=== PATIENT | female | born 1950 | race African-American/Black ===

== ENCOUNTER 2017-01-15 18:04 | Inpatient (IN) ==
[2017-01-16] MEDS: *HR* OxyCODONE Immed Rel 5 MG TABLET PO PRN ×4 (01:00→21:33)
[2017-01-16 06:00] LABS: INR 1.2; Prothrombin Time 12.5 Seconds (9.4-12.1)
[2017-01-16 06:03] LABS: Activated Partial Thrombo Time 31.5 Seconds (26.0-36.0)
[2017-01-16 06:21] LABS: BUN/Creatinine Ratio 22 (6-26); Blood Urea Nitrogen 18 mg/dL (7-20); Calcium 8.4 mg/dL (8.6-10.8); Carbon Dioxide 27 mEq/L (19-29); Chloride 102 mEq/L (98-109); Glucose 102 mg/dL (70-99); Osmolality,Calculated 288 (280-300); Sodium 138 mEq/L (136-145); eGFR For African Americans > 60 (> 60); eGFR For Non-African Americans > 60 (> 60)
[2017-01-16 07:09] LABS: Basophils % 0.4 %; Eosinophils # 0.3 K/mcL (0.0-0.6); Eosinophils % 2.9 %; Hematocrit 30.3 % (35.3-44.9); Hemoglobin 9.8 g/dL (11.5-15.4); Immature Granulocytes % 0.5 % (0-4); Lymphocytes # 2.3 K/mcL (0.6-4.6); Lymphocytes % 22.6 %; Mean Corpuscular HGB Conc 32.3 g/dL (31.6-35.5); Mean Corpuscular Hemoglobin 29.8 pg (28.0-33.3); Mean Corpuscular Volume 92.1 fL (83.0-100.0); Mean Platelet Volume 10.4 fL (9.4-12.4); Monocytes # 0.8 K/mcL (0.0-1.3); Monocytes % 7.6 %; Neutrophils # 6.6 K/mcL (1.6-8.9); Platelet Count 177 K/mcL (140-400); Red Blood Count 3.29 M/mcL (3.82-4.97); Red Cell Distribution Width 14.3 % (11.5-14.5)
[2017-01-16] MEDS: amLODIPine 5 MG TABLET PO SCH (07:47)
[2017-01-16] MEDS: Multivit/Ca/Min/Fe/FA 1 TAB TABLET PO SCH (07:47)
[2017-01-16] MEDS: Aspirin Enteric Coated 325 MG Tablet PO SCH (07:51)
--- NOTE | 2017-01-16 15:39 | Internal Med History&Physical ---
Date of Encounter: 01/16/17 Time of Encounter: 15:15 Assessment and Plan (1) Arthritis of knee, right Current visit: No Status: Acute Status post right TKR 01/13/2017. She will have physical therapy and occupational therapy interventions (2) Anemia Current visit: Yes Status: Acute Suspect due to blood loss since her preop hemoglobin was normal. We will monitor CBC. Qualifiers: Anemia type: unspecified type Qualified Code(s): D64.9 - Anemia, unspecified (3) HTN (hypertension) Current visit: No Status: Chronic Continue Norvasc, Lopressor, and Dyazide. Qualifiers: Hypertension type: essential hypertension Qualified Code(s): I10 - Essential (primary) hypertension Internal Medicine - H&P: HPI Chief complaint: Right knee replacement Admitted From: Hospital to Hospital Transfer Plans for Post Hospital Care: Home History of present illness: Ms. Salinas is a 66 year old female who had left total knee replacement [address] Jaeger at [facility]. Her postop course was unremarkable and she was admitted to [facility] swing bed for rehabilitation therapy prior to returning home to independent living. She states she had previous left shoulder pain and received an injection. She has occasional neck pain. She denies other bone joint or muscle disorders. Past Med Surg Social Fam HX - Past Medical History Medical history: arthritis, hypertension Psychiatric history: no psych history - Social History Smoking Status: Never smoker Smokeless Tobacco Status: No Alcohol use: rarely Drug use: none Internal Medicine - H&P: Meds Amlodipine Besylate 10 mg PO DAILY 10/30/16 [History] Multivitamin [Multi-Day Vitamins] 1 tab PO DAILY 10/30/16 [History] Naproxen Sodium [Aleve] 220 mg PO BID PRN 10/30/16 [History] Potassium Chloride [K-Tab ER] 10 meq PO DAILY 10/30/16 [History] Triamterene/Hydrochlorothiazid [Dyazide 37.5-25 Capsule] 1 tab PO DAILY [History] Aspirin Enteric Coated [Aspirin EC] 325 mg PO DAILY #21 tablet. 01/12/17 [Rx] OxyCODONE Immed Rel [Roxicodone 5 MG] 5 - 10 mg PO Q6HR PRN #40 tablet 01/12/17 [Rx] Metoprolol [Lopressor] 25 mg PO BID 01/14/17 [History] Allergies No Known Drug Allergies Allergy (Verified 10/23/16 09:41) See Comments All Systems PM: A 10-system review of systems was performed and is negative for pertinent findings except as documented above in the HPI. Review of systems: Gen.: She states her weight has been stable the past few months Cardiovascular: She has history of hypertension. She has a heart murmur due to a "leaky valve". She follows with Dr. Samano at [facility]. She denies DVT or pulmonary embolus. Respiratory: She is a lifelong nonsmoker and has no known chronic lung disease. She has been diagnosed with KEVIN and is in the process of getting BiPAP at her home GI: She denies disorders of her liver gallbladder or exocrine pancreas : She denies hematuria dysuria or kidney stones Neurologic: She denies large distribution strokes or seizures Endocrine: She denies diabetes or thyroid disease or hyperlipidemia Hematology/oncology: She denies blood disorders cancers or anemia Psychiatric: She denies anxiety depression or other mental health issues Musk skeletal: As per history of present illness - Constitutional Vitals: Temp Pulse Resp BP Pulse Ox 98.7 F 90 18 130/78 98 01/16/17 07:52 01/16/17 14:28 01/16/17 14:28 01/16/17 14:28 01/16/17 14:28 Exam: Gen.: She is a well-developed well-nourished female who appears in no severe distress at present time HEENT: Head is atraumatic and normocephalic. Eyes: EOMI. There is no scleral icterus. Mouth: Mucosa is moist. Neck: Supple and nontender. There is no thyromegaly or adenopathy noted. Heart: Regular with a 2 to 3/6 systolic murmur heard at the left sternal border. S1 and S2 are preserved. Lungs: No wheezes or crackles are heard Abdomen: Soft and nontender. No masses or guarding are noted. Extremities: She has a dressing over the right anterior knee area. There is no significant edema of her lower legs. Dorsalis pedis and posterior tibial pulses are trace palpable bilaterally. Neurologic: Mental status: She is talkative and a good historian. Cranial nerves: Smile is symmetric. Forehead wrinkles bilaterally. Tongue protrudes midline. EOMI. Motor: There is no pronator drift. Cerebellar: Finger to nose is intact bilaterally. Skin: Warm and dry Internal Med - H&P Results - Labs CBC & Chem 7: 01/16/17 04:42 01/16/17 04:42 Labs: Short CBC 01/16/17 Range/Units 04:42 WBC 10.0 (4.3-11.1) K/mcL Hgb 9.8 L (11.5-15.4) g/dL Hct 30.3 L (35.3-44.9) % Plt Count 177 (140-400) K/mcL Neutrophils # 6.6 (1.6-8.9) K/mcL BMP 01/16/17 04:42 Sodium 138 Potassium 4.0 Chloride 102 Carbon Dioxide 27 BUN 18 Creatinine 0.83 Glucose 102 H Calcium 8.4 L
[2017-01-17] MEDS: *HR* OxyCODONE Immed Rel 5 MG TABLET PO PRN ×3 (05:28→17:30)
[2017-01-17] MEDS: amLODIPine 5 MG TABLET PO SCH (08:24)
[2017-01-17] MEDS: Multivit/Ca/Min/Fe/FA 1 TAB TABLET PO SCH (08:24)
[2017-01-17] MEDS: Aspirin Enteric Coated 325 MG Tablet PO SCH (11:41)
--- NOTE | 2017-01-17 14:15 | Internal Med Progress Note ---
Date of Encounter: 01/17/17 Time of Encounter: 14:05 - Assessment and plan (1) Arthritis of knee, right Current Visit: No Status: Acute Assessment and plan: January 17. Status post right TKR 01/13/2017. Continue PT and OT (2) Anemia Current Visit: Yes Status: Acute Assessment and plan: January 17. We will monitor CBC Qualifiers: Anemia type: unspecified type Qualified Code(s): D64.9 - Anemia, unspecified (3) HTN (hypertension) Current Visit: No Status: Chronic Assessment and plan: January 17. Continue Norvasc, Lopressor, and Dyazide Qualifiers: Hypertension type: essential hypertension Qualified Code(s): I10 - Essential (primary) hypertension - Subjective Interval history: January 17. She has no new complaints - Constitutional Vitals: Temp Pulse Resp BP Pulse Ox 98.2 F 72 18 118/58 96 01/17/17 09:15 01/17/17 11:46 01/17/17 11:46 01/17/17 11:46 01/17/17 11:46 Exam: She is resting comfortably in bed. She was ambulating in the [facility]za earlier today and appeared in no pain at that time. Her affect was bright and cheerful. I reviewed her medications and lab results. Internal Medicine: Result - Labs CBC & Chem 7: 01/16/17 04:42 01/16/17 04:42 - ABG Interpretation ABG results: PT/INR, D-dimer PT 12.5 Seconds (9.4-12.1) H 01/16/17 04:42 Consult Discharge Plan - Plan Referrals: Trenton Lopez DO [Primary Care Provider] - 1 week
[2017-01-18] MEDS: *HR* OxyCODONE Immed Rel 5 MG TABLET PO PRN ×4 (02:05→20:23)
[2017-01-18] MEDS: amLODIPine 5 MG TABLET PO SCH (08:34)
[2017-01-18] MEDS: Multivit/Ca/Min/Fe/FA 1 TAB TABLET PO SCH (08:34)
[2017-01-18] MEDS: Aspirin Enteric Coated 325 MG Tablet PO SCH (11:04)
[2017-01-19] MEDS: *HR* OxyCODONE Immed Rel 5 MG TABLET PO PRN ×4 (03:19→22:05)
[2017-01-19] MEDS: Multivit/Ca/Min/Fe/FA 1 TAB TABLET PO SCH (08:59)
[2017-01-19] MEDS: Aspirin Enteric Coated 325 MG Tablet PO SCH (09:00)
[2017-01-19] MEDS: amLODIPine 5 MG TABLET PO SCH (09:00)
--- NOTE | 2017-01-19 12:57 | Internal Med Progress Note ---
Date of Encounter: 01/19/17 Time of Encounter: 12:45 - Assessment and plan (1) Arthritis of knee, right Current Visit: No Status: Acute Assessment and plan: January 17. Status post right TKR 01/13/2017. Continue PT and OT (2) Anemia Current Visit: Yes Status: Acute Assessment and plan: January 17. We will monitor CBC Qualifiers: Anemia type: unspecified type Qualified Code(s): D64.9 - Anemia, unspecified (3) HTN (hypertension) Current Visit: No Status: Chronic Assessment and plan: January 17. Continue Norvasc, Lopressor, and Dyazide January 19. Continue present regimen. Blood pressure is well controlled. Qualifiers: Hypertension type: essential hypertension Qualified Code(s): I10 - Essential (primary) hypertension - Subjective Interval history: January 17. She has no new complaints January 19. She has no new complaints except she has not had a bowel movement since admission. - Constitutional Vitals: Temp Pulse Resp BP Pulse Ox 98.6 F 83 16 120/65 97 01/19/17 09:25 01/19/17 09:25 01/19/17 09:25 01/19/17 09:25 01/19/17 09:25 Exam: She is resting comfortably in bed. Her affect is bright and cheerful. I reviewed her medications and lab results. Internal Medicine: Result - Labs CBC & Chem 7: 01/16/17 04:42 01/16/17 04:42 - ABG Interpretation ABG results: PT/INR, D-dimer PT 12.5 Seconds (9.4-12.1) H 01/16/17 04:42 Consult Discharge Plan - Plan Referrals: Trenton Lopez DO [Primary Care Provider] - 1 week
[2017-01-19] MEDS ORDERED: MOM Conc 10 ML UD.LIQ PO SCH (13:00)
[2017-01-20] MEDS: *HR* OxyCODONE Immed Rel 5 MG TABLET PO PRN ×3 (04:39→16:20)
[2017-01-20 06:28] LABS: Basophils % 0.3 %; Eosinophils # 0.3 K/mcL (0.0-0.6); Eosinophils % 4.3 %; Hematocrit 31.3 % (35.3-44.9); Hemoglobin 10.2 g/dL (11.5-15.4); Immature Granulocytes % 0.4 % (0-4); Lymphocytes # 1.6 K/mcL (0.6-4.6); Lymphocytes % 20.5 %; Mean Corpuscular HGB Conc 32.6 g/dL (31.6-35.5); Mean Corpuscular Hemoglobin 29.5 pg (28.0-33.3); Mean Corpuscular Volume 90.5 fL (83.0-100.0); Mean Platelet Volume 9.3 fL (9.4-12.4); Monocytes # 0.6 K/mcL (0.0-1.3); Monocytes % 7.6 %; Neutrophils # 5.2 K/mcL (1.6-8.9); Platelet Count 212 K/mcL (140-400); Red Blood Count 3.46 M/mcL (3.82-4.97); Red Cell Distribution Width 14.6 % (11.5-14.5); Segmented Neutrophils % 66.9 %
[2017-01-20 06:50] LABS: BUN/Creatinine Ratio 20 (6-26); Blood Urea Nitrogen 18 mg/dL (7-20); Calcium 8.9 mg/dL (8.6-10.8); Carbon Dioxide 28 mEq/L (19-29); Chloride 102 mEq/L (98-109); Glucose 96 mg/dL (70-99); Osmolality,Calculated 292 (280-300); Potassium 4.2 mEq/L (3.5-4.5); Sodium 140 mEq/L (136-145); eGFR For African Americans > 60 (> 60); eGFR For Non-African Americans > 60 (> 60)
[2017-01-20] MEDS: Aspirin Enteric Coated 325 MG Tablet PO SCH (09:59)
[2017-01-20] MEDS: Multivit/Ca/Min/Fe/FA 1 TAB TABLET PO SCH (09:59)
[2017-01-20] MEDS: amLODIPine 5 MG TABLET PO SCH (09:59)
[2017-01-20] MEDS: MOM Conc 10 ML UD.LIQ PO SCH (20:43)
[2017-01-21] MEDS: amLODIPine 5 MG TABLET PO SCH (10:06)
[2017-01-21] MEDS: MOM Conc 10 ML UD.LIQ PO SCH (10:06)
[2017-01-21] MEDS: Multivit/Ca/Min/Fe/FA 1 TAB TABLET PO SCH (10:07)
--- NOTE | 2017-01-21 17:36 | Internal Med Progress Note ---
Date of Encounter: 01/21/17 Time of Encounter: 17:25 - Assessment and plan (1) Arthritis of knee, right Current Visit: No Status: Acute Assessment and plan: January 17. Status post right TKR 01/13/2017. Continue PT and OT January 21. Continue PT/OT. Anticipate discharge home January 23. (2) Anemia Current Visit: Yes Status: Acute Assessment and plan: January 17. We will monitor CBC January 21. Hemoglobin improved to 10.2 yesterday. Will not workup or treat further. Qualifiers: Anemia type: unspecified type Qualified Code(s): D64.9 - Anemia, unspecified (3) HTN (hypertension) Current Visit: No Status: Chronic Assessment and plan: January 17. Continue Norvasc, Lopressor, and Dyazide January 19. Continue present regimen. Blood pressure is well controlled. Qualifiers: Hypertension type: essential hypertension Qualified Code(s): I10 - Essential (primary) hypertension (4) Constipation Current Visit: Yes Status: Acute Assessment and plan: January 21. Magnesium citrate will be given. Qualifiers: Constipation type: unspecified constipation type Qualified Code(s): K59.00 - Constipation, unspecified - Subjective Interval history: January 17. She has no new complaints January 19. She has no new complaints except she has not had a bowel movement since admission. January 21. She has no new complaints. She reports no bowel movement has occurred - Constitutional Vitals: Temp Pulse Resp BP Pulse Ox 97.9 F 79 16 136/67 95 01/21/17 06:51 01/21/17 10:02 01/21/17 10:02 01/21/17 10:02 01/21/17 10:02 Exam: She appears uncomfortable stating she feels constipated. Internal Medicine: Result - Labs CBC & Chem 7: 01/20/17 06:20 01/20/17 06:20 - ABG Interpretation ABG results: PT/INR, D-dimer PT 12.5 Seconds (9.4-12.1) H 01/16/17 04:42 Consult Discharge Plan - Plan Referrals: Trenton Lopez DO [Primary Care Provider] - 1 week
[2017-01-21] MEDS: Aspirin Enteric Coated 325 MG Tablet PO SCH (17:56)
[2017-01-22] MEDS: Multivit/Ca/Min/Fe/FA 1 TAB TABLET PO SCH (08:29)
[2017-01-22] MEDS: Aspirin Enteric Coated 325 MG Tablet PO SCH (08:29)
[2017-01-22] MEDS: amLODIPine 5 MG TABLET PO SCH (08:29)
[2017-01-22] MEDS: MOM Conc 10 ML UD.LIQ PO SCH (08:30)
[2017-01-22] MEDS ORDERED: Preparation H Ointment 30 GM TUBE RC PRN (09:47)
[2017-01-23 07:13] VITALS: BP 112/68
[2017-01-23] MEDS: MOM Conc 10 ML UD.LIQ PO SCH (09:07)
[2017-01-23] MEDS: Multivit/Ca/Min/Fe/FA 1 TAB TABLET PO SCH (09:07)
[2017-01-23] MEDS: amLODIPine 5 MG TABLET PO SCH (09:07)
[2017-01-23] MEDS: Aspirin Enteric Coated 325 MG Tablet PO SCH (09:09)
--- NOTE | 2017-01-23 10:02 | Discharge Summary ---
Date of Encounter: 01/23/17 Time of Encounter: 09:50 - Discharge Diagnosis (1) Arthritis of knee, right Priority: Primary Status: Acute (2) Anemia Priority: Secondary Status: Acute Qualifiers: Anemia type: unspecified type Qualified Code(s): D64.9 - Anemia, unspecified (3) HTN (hypertension) Priority: Secondary Status: Chronic Qualifiers: Hypertension type: essential hypertension Qualified Code(s): I10 - Essential (primary) hypertension (4) Constipation Priority: Secondary Status: Resolved Qualifiers: Constipation type: unspecified constipation type Qualified Code(s): K59.00 - Constipation, unspecified - Discharge Medications Home Medications: Amlodipine Besylate 10 mg PO DAILY 10/30/16 [History] Multivitamin [Multi-Day Vitamins] 1 tab PO DAILY 10/30/16 [History] Potassium Chloride [K-Tab ER] 10 meq PO DAILY 10/30/16 [History] Triamterene/Hydrochlorothiazid [Dyazide 37.5-25 Capsule] 1 tab PO DAILY [History] Aspirin Enteric Coated [Aspirin EC] 325 mg PO DAILY #21 tablet. 01/12/17 [Rx] OxyCODONE Immed Rel [Roxicodone 5 MG] 5 - 10 mg PO Q6HR PRN #40 tablet 01/12/17 [Rx] Metoprolol [Lopressor] 25 mg PO BID 01/14/17 [History] Allergies/Adverse Reactions: Allergies No Known Drug Allergies Allergy (Verified 10/23/16 09:41) See Comments Date of admission: 01/15/17 19:33 Primary care physician: Trenton Lopez Consults: 01/15/17 19:51 Consult to Occupational Therapy [CONS] Routine Comment: eval, develop, and implement plan of care Reason for Consult: eval, develop, and implement plan of care Consult to Physical Therapy [CONS] Routine Comment: eval, develop, and implement plan of care Reason for Consult: eval, develop, and implement plan of care Consult to Trade Analyst [CONS] Routine Reason for SW Consult: D/C planning - Patient Status Disposition: Home Health Service Functional capacity at discharge: uses cane/walker Overall status at discharge: patient is progressing back to baseline - Discharge Instructions Follow Up With: Trenton Lopez DO [Primary Care Provider] - 1 week - Diet and Activity Activity: as per physical therapy Diet: advance to your usual diet Hospital course: Ms. Salinas is a 66 year old female who had left total knee replacement [address] Jaeger at [facility]. Her postop course was unremarkable and she was admitted to [facility] swing bed for rehabilitation therapy prior to returning home to independent living. She states she had previous left shoulder pain and received an injection. She has occasional neck pain. She denies other bone joint or muscle disorders. Initial orders were written by the discharging physicians at [facility]. I saw her on January 16 and performed a swing bed history and physical. She had physical therapy and occupational therapy evaluations with ongoing interventions. She made satisfactory progress and had no complications during her swing bed stay. On January 23 she felt stable for discharge home. She will follow with her PCP within one week and with her orthopedic group as directed. - Time Spent with Patient Total time spent providing and/or coordinating discharge services: - Constitutional Vitals: Temp Pulse Resp BP Pulse Ox 98.0 F 80 16 112/68 93 01/23/17 07:08 01/23/17 07:43 01/23/17 07:43 01/23/17 07:43 01/23/17 07:43
--- NOTE | 2017-01-23 10:04 | Physician Discharge Referral ---
Home Health/Hosp Referral Info Transfer to: Home Health Attending Provider: Lex Provider in Charge Post Discharge: PCP (Trenton Lopez DO) - Diagnosis (1) Arthritis of knee, right Priority: Primary Status: Acute (2) Anemia Priority: Secondary Status: Acute (3) HTN (hypertension) Priority: Secondary Status: Chronic (4) Constipation Priority: Secondary Status: Resolved - Respiratory Orders Smoking Cessation: Smoking cessation has been advised. For more information, call the [place] Tobacco Quit Line at 2-005-OFVI-NOW. - Diet/Nutrition Diet/Nutrition Orders: Regular - Activity Activity Orders: Ambulate - Services Needed Following services are medically necessary services: Nursing, Home Health Aide, Physical Therapy, Occupational Therapy - Transfer Medications Home Medications: Amlodipine Besylate 10 mg PO DAILY 10/30/16 [History] Multivitamin [Multi-Day Vitamins] 1 tab PO DAILY 10/30/16 [History] Potassium Chloride [K-Tab ER] 10 meq PO DAILY 10/30/16 [History] Triamterene/Hydrochlorothiazid [Dyazide 37.5-25 Capsule] 1 tab PO DAILY [History] Aspirin Enteric Coated [Aspirin EC] 325 mg PO DAILY #21 tablet. 01/12/17 [Rx] OxyCODONE Immed Rel [Roxicodone 5 MG] 5 - 10 mg PO Q6HR PRN #40 tablet 01/12/17 [Rx] Metoprolol [Lopressor] 25 mg PO BID 01/14/17 [History] Allergies/Adverse Reactions: Allergies No Known Drug Allergies Allergy (Verified 10/23/16 09:41) See Comments Certification: Further, I certify that my clinical findings support that this patient is homebound (i.e. absences from home require considerable and taxing effort and are for medical reasons or mormon services or infrequently or short duration when for other reasons) because: Homebound Reason: Leaving home requires considerable and taxing effort due to condition (Status post left TKR 01/13/2017.) Attestation: My signature below is to certify that this patient is under my care and that I, or nurse practitioner, or a physician's seed analysis laboratory assistant working with me, has a face-to -face encounter with this patient.
== END 2017-01-23 13:30 | disposition home health service (06) | DRG 561 ==
LOC: INPPIK 19:33
PROVIDERS: ADMIT Internal Medicine; ATTEND Internal Medicine

== ENCOUNTER 2017-09-25 10:08 | Inpatient (IN) ==
[2017-09-25] MEDS ORDERED: *HR* OxyCODONE Immed Rel 5 MG TABLET PO PRN (14:25)
--- NOTE | 2017-09-25 15:51 | Internal Med History&Physical ---
Date of Encounter: 09/25/17 Time of Encounter: 15:30 Assessment and Plan (1) Status post total left knee replacement Current visit: No Status: Acute She will be given Lovenox for DVT prophylaxis. PT and OT interventions will be done and further workup as needed. (2) HTN (hypertension) Current visit: No Status: Chronic Continue Dyazide, Norvasc, and Lopressor. Qualifiers: Hypertension type: essential hypertension Qualified Code(s): I10 - Essential (primary) hypertension (3) Anemia Current visit: No Status: Acute Hemoglobin was normal preoperatively. We will monitor CBC periodically. Qualifiers: Anemia type: unspecified type Qualified Code(s): D64.9 - Anemia, unspecified Internal Medicine - H&P: HPI Chief complaint: DJD with left TKR Admitted From: Hospital to Hospital Transfer Plans for Post Hospital Care: Home History of present illness: Ms. Salinas is a 67 year old female who was admitted to [facility] swing bed today after having left total knee replacement 09/22/[address] Jaeger at [facility]. Her postoperative course was unremarkable and she was admitted for rehabilitation therapy prior to returning home to independent living. She had right total knee replacement December 2016. She denies other bone joint or muscle disorders. Past Med Surg Social Fam HX - Past Medical History Medical history: arthritis, hypertension Psychiatric history: no psych history - Social History Smoking Status: Never smoker Smokeless Tobacco Status: No Alcohol use: none Drug use: none - Family History Mother Hx Family Cancer: Yes (ovarian) Father Hx Family Cancer: Yes (lung) Internal Medicine - H&P: Meds Calcipotriene [Dovonex] 1 appl TP BID 09/22/17 [History] Metoprolol [Lopressor] 25 mg PO TID 09/22/17 [History] Naproxen [Naprosyn] 500 mg PO BID PRN 09/22/17 [History] Potassium Chloride [Klor-Con 10] 10 meq PO DAILY 09/22/17 [History] Triamterene/HCTZ 37.5/25mg [Dyazide] 1 tab PO DAILY 09/22/17 [History] amLODIPine [Norvasc] 5 mg PO DAILY 09/22/17 [History] 3 Allergy/AdvReac Type Severity Reaction Status Date / Time No Known Drug Allergies Allergy See Verified 01/22/18 08:47 Comments All Systems PM: A 10-system review of systems was performed and is negative for pertinent findings except as documented above in the HPI. Review of systems: Review of systems from her December 2016 [facility] hospitalization were reviewed and revised as below. Gen.: Weight has been stable at approximately 130 kg since the December 2016 hospitalization. Cardiovascular: She has history of hypertension. She has a heart murmur due to a "leaky valve". She follows with Dr. Samano at [facility]. She denies DVT or pulmonary embolus. Respiratory: She is a lifelong nonsmoker and has no known chronic lung disease. She has been diagnosed with KEVIN and uses BiPAP GI: She denies disorders of her liver gallbladder or exocrine pancreas : She denies hematuria dysuria or kidney stones Neurologic: She denies large distribution strokes or seizures Endocrine: She denies diabetes or thyroid disease or hyperlipidemia Hematology/oncology: She denies blood disorders cancers or anemia Psychiatric: She denies anxiety depression or other mental health issues [place] skeletal: As per history of present illness - Constitutional Vitals: Temp Pulse Resp BP Pulse Ox 98.3 F 81 16 107/69 91 09/25/17 13:56 09/25/17 13:56 09/25/17 13:56 09/25/17 13:56 09/25/17 13:56 Exam: Gen.: She is a well-developed overweight female lying in bed who appears in no significant distress at present time HEENT: Head is atraumatic and normocephalic. Eyes: EOMI. There is no scleral icterus. Mouth: Mucosa is moist. Neck: Supple and nontender. There is no thyromegaly or adenopathy noted. Heart: Regular with a 2 to 3/6 systolic murmur heard at the left sternal border. S1 and S2 are soft Lungs: No wheezes or crackles are heard Abdomen: Soft and nontender. No masses or guarding are noted. Extremities: She has a surgical bandage over the left TKR site. There is trace edema of the lower anterior schuster and dorsum of the foot. The right knee shows a well-healed scar from previous surgery. No edema is present. Neurologic: Mental status: She is talkative and a good historian. Cranial nerves: Smile is symmetric. Forehead wrinkles bilaterally. Tongue protrudes midline. EOMI. Motor: There is no pronator drift. Cerebellar: Finger to nose is intact bilaterally. Skin: Warm and dry
[2017-09-25] MEDS: *HR* OxyCODONE Immed Rel 5 MG TABLET PO PRN (21:04)
[2017-09-26] MEDS: *HR* Enoxaparin 40 MG/0.4 ML SYRINGE SQ SCH (05:31)
[2017-09-26] MEDS ORDERED: amLODIPine 5 MG TABLET PO SCH (09:00)
[2017-09-26] MEDS ORDERED: Aspirin 325 MG TABLET PO SCH (09:00)
[2017-09-26] MEDS: Multivit/Ca/Min/Fe/FA 1 TAB TABLET PO SCH (09:37)
[2017-09-26] MEDS ORDERED: MOM Conc 10 ML UD.LIQ PO PRN (11:19)
--- NOTE | 2017-09-26 14:28 | Internal Med Progress Note ---
Date of Encounter: 09/26/17 Time of Encounter: 14:20 - Assessment and plan (1) Status post total left knee replacement Current Visit: No Status: Acute Assessment and plan: September 26. Continue Lovenox and therapy. Will order scheduled Tylenol. Will also schedule MOM and encourage adequate analgesic use. (2) HTN (hypertension) Current Visit: No Status: Chronic Assessment and plan: September 26. Blood pressure is borderline low. Will stop amlodipine and decrease metoprolol. Continue Dyazide for now at present dose. Qualifiers: Hypertension type: essential hypertension Qualified Code(s): I10 - Essential (primary) hypertension (3) Anemia Current Visit: No Status: Acute Assessment and plan: September 26. We will monitor CBC periodically. Qualifiers: Anemia type: unspecified type Qualified Code(s): D64.9 - Anemia, unspecified - Subjective Interval history: September 26. She has no new complaints except she is in pain but states pain medicine constipates her. - Constitutional Vitals: Temp Pulse Resp BP Pulse Ox 98.6 F 88 16 95/60 97 09/26/17 06:51 09/26/17 11:16 09/26/17 11:16 09/26/17 11:16 09/26/17 11:16 Exam: She is walking in the hallway with the therapist. She appears in mild to moderate pain. I reviewed her medications, vitals, and lab results. Consult Discharge Plan - Plan Referrals: Trenton Lopez DO [Primary Care Provider] - 1 week
[2017-09-26] MEDS: *HR* OxyCODONE Immed Rel 5 MG TABLET PO PRN ×2 (14:34→17:58)
[2017-09-26] MEDS: MOM Conc 10 ML UD.LIQ PO SCH (14:39)
[2017-09-27] MEDS: *HR* OxyCODONE Immed Rel 5 MG TABLET PO PRN ×4 (05:52→20:18)
[2017-09-27] MEDS: *HR* Enoxaparin 40 MG/0.4 ML SYRINGE SQ SCH (05:53)
[2017-09-27] MEDS: Multivit/Ca/Min/Fe/FA 1 TAB TABLET PO SCH (08:40)
[2017-09-28] MEDS: *HR* OxyCODONE Immed Rel 5 MG TABLET PO PRN ×3 (02:58→20:43)
[2017-09-28] MEDS: *HR* Enoxaparin 40 MG/0.4 ML SYRINGE SQ SCH (06:41)
[2017-09-28] MEDS: Multivit/Ca/Min/Fe/FA 1 TAB TABLET PO SCH (08:45)
[2017-09-28] MEDS: MOM Conc 10 ML UD.LIQ PO SCH (13:47)
[2017-09-29] MEDS: *HR* OxyCODONE Immed Rel 5 MG TABLET PO PRN ×3 (05:25→23:16)
[2017-09-29] MEDS: *HR* Enoxaparin 40 MG/0.4 ML SYRINGE SQ SCH (05:26)
[2017-09-29] MEDS: Multivit/Ca/Min/Fe/FA 1 TAB TABLET PO SCH (08:28)
--- NOTE | 2017-09-29 12:02 | Internal Med Progress Note ---
Date of Encounter: 09/29/17 Time of Encounter: 11:50 - Assessment and plan (1) Status post total left knee replacement Current Visit: No Status: Acute Assessment and plan: September 26. Continue Lovenox and therapy. Will order scheduled Tylenol. Will also schedule MOM and encourage adequate analgesic use. September 29. Continue present regimen. (2) HTN (hypertension) Current Visit: No Status: Chronic Assessment and plan: September 26. Blood pressure is borderline low. Will stop amlodipine and decrease metoprolol. Continue Dyazide for now at present dose. September 29. Blood pressure satisfactory. Continue present dose metoprolol and Dyazide. Qualifiers: Hypertension type: essential hypertension Qualified Code(s): I10 - Essential (primary) hypertension (3) Anemia Current Visit: No Status: Acute Assessment and plan: September 26. We will monitor CBC periodically. Qualifiers: Anemia type: unspecified type Qualified Code(s): D64.9 - Anemia, unspecified - Subjective Interval history: September 26. She has no new complaints except she is in pain but states pain medicine constipates her. September 29. She has no new complaints. She is having adequate bowel movements on present regimen. - Constitutional Vitals: Temp Pulse Resp BP Pulse Ox 98.7 F 75 17 102/66 95 09/29/17 06:37 09/29/17 06:37 09/29/17 06:37 09/29/17 06:37 09/29/17 06:37 Exam: She is sitting in a chair at bedside and appears in no acute distress. She was able to rise from the chair and take a step. I reviewed her medications and lab results. Consult Discharge Plan - Plan Referrals: Trenton Lopez DO [Primary Care Provider] - 1 week
[2017-09-30] MEDS: *HR* OxyCODONE Immed Rel 5 MG TABLET PO PRN ×3 (02:46→16:14)
[2017-09-30] MEDS: *HR* Enoxaparin 40 MG/0.4 ML SYRINGE SQ SCH (06:11)
[2017-09-30] MEDS: Multivit/Ca/Min/Fe/FA 1 TAB TABLET PO SCH (09:04)
[2017-09-30] MEDS: MOM Conc 10 ML UD.LIQ PO SCH (17:39)
[2017-09-30 19:57] VITALS: BP 108/74
[2017-10-01] MEDS: *HR* OxyCODONE Immed Rel 5 MG TABLET PO PRN ×2 (02:57→09:25)
[2017-10-01] MEDS: *HR* Enoxaparin 40 MG/0.4 ML SYRINGE SQ SCH (05:46)
[2017-10-01] MEDS: Multivit/Ca/Min/Fe/FA 1 TAB TABLET PO SCH (09:25)
--- NOTE | 2017-10-01 10:24 | Discharge Summary ---
Date of Encounter: 10/01/17 Time of Encounter: 10:15 - Discharge Diagnosis (1) Status post total left knee replacement Priority: Primary Status: Acute (2) HTN (hypertension) Priority: Secondary Status: Chronic Qualifiers: Hypertension type: essential hypertension Qualified Code(s): I10 - Essential (primary) hypertension (3) Anemia Priority: Secondary Status: Acute Qualifiers: Anemia type: unspecified type Qualified Code(s): D64.9 - Anemia, unspecified - Discharge Medications Home Medications: Calcipotriene [Dovonex] 1 appl TP BID 09/22/17 [History] Naproxen [Naprosyn] 500 mg PO BID PRN 09/22/17 [History] Potassium Chloride [Klor-Con 10] 10 meq PO DAILY 09/22/17 [History] Triamterene/HCTZ 37.5/25mg [Dyazide] 1 tab PO DAILY 09/22/17 [History] Metoprolol [Lopressor] 25 mg PO BID #0 10/01/17 [Rx] Allergies/Adverse Reactions: 3 Allergy/AdvReac Type Severity Reaction Status Date / Time No Known Drug Allergies Allergy See Verified 09/22/17 08:47 Comments Date of admission: 09/25/17 13:44 Primary care physician: Trenton Lopez Consults: 09/25/17 14:23 Consult to Occupational Therapy [CONS] Routine Comment: Evaluate, develop and implement POC Reason for Consult: Evaluate, develop and implement POC Consult to Physical Therapy [CONS] Routine Comment: Evaluate, develop and implement POC Reason for Consult: Evaluate, develop and implement POC - Patient Status Disposition: Home, Self-Care Functional capacity at discharge: uses cane/walker Overall status at discharge: patient is progressing back to baseline - Discharge Instructions Follow Up With: Trenton Lopez DO [Primary Care Provider] - 1 week - Diet and Activity Activity: as per physical therapy Diet: advance to your usual diet Hospital course: Ms. Salinas is a 67 year old female who was admitted to [facility] swing bed today after having left total knee replacement 09/22/[address] Jaeger at [facility]. Her postoperative course was unremarkable and she was admitted for rehabilitation therapy prior to returning home to independent living. Initial orders were written by the discharging physicians at [facility]. I saw her on September 25 and performed the swing bed history and physical. She had physical therapy and occupational therapy evaluation with ongoing intervention. She made satisfactory progress. There were no new problems and on October 01 she felt stable for discharge home. She will follow with her PCP within one week and with her orthopedist as directed. She had borderline hypotension so amlodipine was discontinued and Lopressor dose was reduced to 25 mg twice a day. - Time Spent with Patient Total time spent providing and/or coordinating discharge services: - Constitutional Vitals: Temp Pulse Resp BP Pulse Ox 99.0 F 92 18 108/74 98 09/30/17 18:25 09/30/17 18:25 09/30/17 18:25 09/30/17 18:25 09/30/17 21:54
== END 2017-10-01 11:30 | disposition home or self-care (01) | DRG 560 ==
LOC: INPPIK 13:44
PROVIDERS: ADMIT Internal Medicine; ATTEND Internal Medicine